=== PATIENT | male | born 1965 | race Caucasian/White ===

== ENCOUNTER → 2022-04-09 10:38 | Outpatient (CLI) | payer MEDICAID, SELFPAY ==
[2022-04-09 12:33] LABS: Alanine Aminotransferase 48 U/L (12-78); Albumin Level 4.2 g/dl (3.5-5.0); Alkaline Phosphatase 71 U/L (38-126); Anion Gap 11.8 mEq/L (5-15); Aspartate Amino Transferase 36 U/L (17-59); Bilirubin,Direct 0.2 mg/dl (0.0-0.4); Bilirubin,Indirect 0.6 mg/dL (0.0-0.9); Bilirubin,Total 0.8 mg/dl (0.2-1.3); Bilirubin,Unconjugated 0.7 mg/dL (0.0-1.1); Blood Urea Nitrogen 13 mg/dl (9-20); Carbon Dioxide 30 mmol/L (22.0-30.0); Chloride 104 mmol/L (98-107); Chol/HDL Ratio 3.4 (1-3.5); Cholesterol 158 mg/dl (140-200); Estimated Glomerular Filt Rate 69 ml/min (>60); GFR (African American) 83 ML/MIN (>60); Glucose 111 mg/dl (74-100); HDL Cholesterol 46 mg/dl (40-60); Potassium 4.8 mmoL/L (3.5-5.1); Sodium 141 mmol/L (136-145); Triglycerides 91 mg/dl (30-150); VLDL Cholesterol 18 mg/dL (0-40)
[2022-04-09 12:42] LABS: NT Pro Brain Natriuretic Pep. 132 pg/mL (0-125)
[2022-04-09 12:44] LABS: Direct LDL Cholesterol 88.94 mg/dL (100-129)
[2022-04-09 12:47] LABS: 25-OH Vitamin D, Total 43.8 ng/mL (30-100)
[2022-04-09 12:51] LABS: Basophils # 0.1 K/mm3 (0-0.2); Basophils % 1.6 % (0.1-2.0); Eosinophils # 0.2 K/mm3 (0.0-0.4); Eosinophils % 2.2 % (0.1-12.0); Hematocrit 52.8 % (42.0-52.0); Hemoglobin 16.5 g/dL (14.1-18.0); Lymphocytes # 1.5 K/mm3 (0.7-4.5); Lymphocytes % 18.4 % (10-50); Mean Corpuscular HGB Conc 31.2 g/dL (31.8-35.4); Mean Corpuscular Hemoglobin 29.3 pg (27.0-31.2); Mean Corpuscular Volume 94.1 fl (80-94); Mean Platelet Volume 9.9 fl (7.4-10.4); Monocytes # 0.4 K/mm3 (0.1-1.0); Neutrophils # 6.1 K/mm3 (1.8-7.8); Neutrophils % 72.7 % (37.0-80.0); Platelet Count 203 K/mm3 (142-424); Red Blood Count 5.61 M/mm3 (4.60-6.20); Red Cell Distribution Width 13.5 % (11.5-17.5); White Blood Count 8.4 K/mm3 (4.8-10.8)
[2022-04-09 13:04] LABS: Thyroid Stimulating Hormone 0.49 uIU/mL (0.465-4.68)
[2022-04-09 15:06] LABS: Free T4 (Free Thyroxine) 0.71 ng/dl (0.78-2.19)
== END ==
PROVIDERS: PCP Nurse Practitioner Family; Visit Provider Internal Medicine Cardiovascular Disease
DX: R06.00 Dyspnea, unspecified (principal); R00.0 Tachycardia, unspecified; R42 Dizziness and giddiness; R25.1 Tremor, unspecified; I11.0 Hypertensive heart disease with heart failure; I50.9 Heart failure, unspecified; E11.9 Type 2 diabetes mellitus without complications; E55.9 Vitamin D deficiency, unspecified; I63.9 Cerebral infarction, unspecified; R06.83 Snoring
CPT/HCPCS: 36415; 80048; 80061; 80076; 82306; 83880; 84439; 84443; 85025; 93270

== ENCOUNTER 2022-04-22 21:24 | Emergency (ER) | payer MEDICAID, SELFPAY ==
--- NOTE | 2022-04-22 21:22 | ECG_ITS ---
APPROVED REPORT Exam: Resting ECG HR:91 bpm ECG Measurements Heart Rate 91 AXES DE 159 P 54 QRSd 105 QRS 50 QT 362 T 41 QTc 410 Conclusion SINUS RHYTHM NORMAL ECG UNCONFIRMED REPORT Electronically signed by : Gwyn Gruber MD 04/23/2022 08:20:16
[2022-04-22 21:24] VITALS: BP 144/94; PULSE 89; RESP 18; TEMP 37.2; O2SAT 96; BMI 27.8
[2022-04-22 21:31] VITALS: BMI 27.8
--- NOTE | 2022-04-22 21:31 | CT_ITS ---
PROCEDURE INFORMATION: Exam: CT Head Without Contrast Exam date and time: 04/22/2022 9:47 PM Age: 57 years old Clinical indication: Other: Hallucinations; Additional info: [place] halluciations TECHNIQUE: Imaging protocol: Computed tomography of the head without contrast. Radiation optimization: All CT scans at this facility use at least one of these dose optimization techniques: automated exposure control; mA and/or kV adjustment per patient size (includes targeted exams where dose is matched to clinical indication); or iterative reconstruction. Other protocol: This patient has received 0 known CTs and 0 known cardiac nuclear medicine studies in the 12 months prior to the current study. COMPARISON: No relevant prior studies available. FINDINGS: Brain: Mild brain volume loss. No mass, hemorrhage or acute infarct. Cerebral ventricles: No ventriculomegaly. Paranasal sinuses: There is a small cyst in the left maxillary sinus. Mastoid air cells: Visualized mastoid air cells are well aerated. Bones/joints: Unremarkable. No acute fracture. Soft tissues: Unremarkable. IMPRESSION: No acute intracranial findings.
[2022-04-22 21:40] LABS: Basophils # 0.1 K/mm3 (0-0.2); Basophils % 1.4 % (0.1-2.0); Eosinophils # 0.3 K/mm3 (0.0-0.4); Eosinophils % 3.3 % (0.1-12.0); Hematocrit 48.3 % (42.0-52.0); Hemoglobin 16.2 g/dL (14.1-18.0); Lymphocytes # 1.9 K/mm3 (0.7-4.5); Lymphocytes % 19.7 % (10-50); Mean Corpuscular HGB Conc 33.5 g/dL (31.8-35.4); Mean Corpuscular Hemoglobin 30.8 pg (27.0-31.2); Mean Corpuscular Volume 91.8 fl (80-94); Mean Platelet Volume 9.1 fl (7.4-10.4); Monocytes # 0.4 K/mm3 (0.1-1.0); Monocytes % 4.1 % (1.7-9.3); Neutrophils # 6.7 K/mm3 (1.8-7.8); Neutrophils % 71.5 % (37.0-80.0); Platelet Count 198 K/mm3 (142-424); Red Blood Count 5.26 M/mm3 (4.60-6.20); Red Cell Distribution Width 13.8 % (11.5-17.5); White Blood Count 9.4 K/mm3 (4.8-10.8)
[2022-04-22 21:44] LABS: Microscopic, Urine URINE MICROSCOPIC (MICROSCOPIC)
[2022-04-22 21:46] LABS: Alanine Aminotransferase 75 U/L (12-78); Albumin Level 4.4 g/dl (3.5-5.0); Albumin/Globulin Ratio 1.5 (1.1-1.8); Alkaline Phosphatase 67 U/L (38-126); Anion Gap 9.9 mEq/L (5-15); Aspartate Amino Transferase 52 U/L (17-59); Bilirubin,Total 0.6 mg/dl (0.2-1.3); Blood Urea Nitrogen 12 mg/dl (9-20); Calcium 8.9 mg/dl (8.4-10.2); Carbon Dioxide 29 mmol/L (22.0-30.0); Chloride 105 mmol/L (98-107); Creatinine Clearance Estimated 134 mL/min (50-200); Estimated Glomerular Filt Rate 100 ml/min (>60); GFR (African American) 121 ML/MIN (>60); Glucose 125 mg/dl (74-100); Potassium 3.9 mmoL/L (3.5-5.1); Sodium 140 mmol/L (136-145); Total Protein,Serum 7.4 g/dl (6.3-8.2)
[2022-04-22 21:50] LABS: Appearance,Urine CLEAR (Clear); Bilirubin,Urine Negative (Negative); Blood, Urine Negative (Negative); Color,Urine YELLOW (Yellow); Glucose,Urine (UA) Negative (Negative); Ketones,Urine Negative (Negative); Leukocyte Esterase,Urine Negative (Negative); Nitrate,Urine Negative (Negative); PH,Urine 5.5 (5.0-8.5); Protein,Urine Negative (Negative); Specific Gravity, Urine 1.025 (1.005-1.030); Urobilinogen,Urine 0.2 EU/dl (0.2)
[2022-04-22 21:53] LABS: C-Reactive Protein 0.6 mg/L (0-4)
[2022-04-22 21:58] LABS: Squamous Epithelial Cell,Urine Occasional #/hpf (0-5)
[2022-04-22 22:00] LABS: Barbiturates Screen,Urine Negative ng/ml (<200); Benzodiazepines Screen,Urine Negative ng/ml (<200)
[2022-04-22 22:01] LABS: Amphetamine/Metha Screen,Urine Negative ng/ml (<1000)
[2022-04-22 22:02] LABS: Cannabinoid Screen,Urine Negative ng/ml (<50); Cocaine Screen,Urine Negative ng/ml (<300)
[2022-04-22 22:03] LABS: Methadone Screen,Urine Negative ng/ml (<300)
[2022-04-22 22:04] LABS: Opiate Screen,Urine Negative ng/ml (<300); Phencyclidine Screen,Urine Negative ng/ml (<25)
[2022-04-22 22:05] LABS: Procalcitonin 0.088 ng/mL (0.0-2.0)
[2022-04-22 22:06] LABS: Free T4 (Free Thyroxine) 0.81 ng/dl (0.78-2.19)
--- NOTE | 2022-04-22 22:14 | HMH.EDGENADL ---
Discharge Plan Disposition Patient Disposition: Home, Self-Care Prescriptions Prescriptions: No Action allopurinol 100 mg tablet 100 mg PO DAILY cyclobenzaprine 10 mg tablet 10 mg PO BID dicyclomine 20 mg tablet 20 mg PO QID pantoprazole [address] for susp in packet 40 mg PO DAILY atorvastatin 20 mg tablet 20 mg PO DAILY colestipol 1 gram tablet 1 g PO BID PRN (Reason: Diarrhea) Referrals Follow up/Referrals: Provider,Referral, MD [Referring] - See instructions Clinical Impressions Clinical Impression: Nausea, Headache Instructions Patient Instructions: DI for Headache Discharge ED Provider: Sam Romero General Adult HPI General Chief complaint: PAIN Stated complaint: chest pain Time Seen by Provider: 04/22/22 22:14 Mode of Arrival: Ambulatory Source of Information: Patient, Relative and Medical Record Limitations: No Limitations Description of Symptoms (Recalled from ER Triage Doc. by RN): pt reports a severe pressure headache 10/04. problems voiding and auditory and visual hallucinations. frequent weakness. pt reports this has been going on a few days. pt daughter reports some recent medicine changes as well History of Present Illness HPI narrative: pt with not feeling well with nausea - pt with reported sx as above with triage but not to me - no chest pain or focal neuro sx Onset (ago): hour(s) Severity: moderate Associated symptoms: denies other symptoms Related Data Home Medications Medication Instructions Recorded Confirmed allopurinol 100 mg tablet 100 mg PO DAILY Kidney stones 04/09/22 04/22/22 atorvastatin 20 mg tablet 20 mg PO DAILY Cholesterol 04/09/22 04/22/22 colestipol 1 gram tablet 1 g PO BID PRN Diarrhea 04/09/22 04/22/22 cyclobenzaprine 10 mg tablet 10 mg PO BID Tremors 04/09/22 04/22/22 dicyclomine 20 mg tablet 20 mg PO QID . 04/09/22 04/22/22 pantoprazole 40 mg granules 40 mg PO DAILY GERD 04/09/22 04/22/22 delayed-release for susp in packet Allergies Allergy/AdvReac Type Severity Reaction Status Date / Time Penicillins Allergy Mild Verified 04/20/22 15:23 propranolol AdvReac Intermediate visual Uncoded 04/20/22 15:23 hallucinations PFSH [facility] Disclaimer: The information contained in this section may have been updated after the patient was seen, as this information can be updated by other users. Medical History (Updated 04/23/22 @ 01:02 by Sam Romero MD) Visual hallucinations Surgical History (Updated 04/09/22 @ 09:56 by Spring Encarnacion) History of appendectomy Social History (Updated 04/09/22 @ 09:57 by Spring Encarnacion) Smoking Status: Never smoker alcohol intake: never substance use type: denies use current occupational status: employed Travel in the last 8 weeks: Inside the [place] ROS Obtained: Yes All systems reviewed & no additional complaints except as documented Physical Exam General General appearance: alert Head Head exam: normocephalic Eye Eye exam: Present PERRL and EOMI; Absent nystagmus ENT ENT exam: Present mucous membranes moist Neck Neck exam: Present trachea midline Respiratory Respiratory exam: Absent respiratory distress Cardiovascular Cardiovascular exam: Present regular rate Abdominal Exam Abdominal exam: Present soft Extremities Exam Extremities exam: Present full ROM Neurological Exam Neurological exam: Present alert, oriented X3, CN II-XII intact and normal gait Psychiatric Psychiatric exam: Present normal affect Skin Skin exam: Absent rash Medical Decision Making Medical Records Medical records reviewed: Yes I reviewed the patient's medical records. Antonino Inquiry Pt receiving controlled substance: No Vital Signs: 04/22/22 21:24 04/22/22 22:25 04/23/22 00:37 Temperature 98.9 F Temperature Source Oral Pulse Rate [Left] 89 Pulse Rate [Orthostatic Lying Left Radial] 94 H Pulse Rate [Orthostatic Sitting Left
[2022-04-22 22:19] LABS: Thyroid Stimulating Hormone 0.23 uIU/mL (0.465-4.68)
[2022-04-22 22:25] VITALS: BP 121/87; BP 123/84; BP 125/84; PULSE 85; PULSE 87; PULSE 94
[2022-04-22 22:29] LABS: Erythrocyte Sedimentation Rate 2 mm/hr (0-20)
--- NOTE | 2022-04-22 22:31 | PC.NURSE ---
Dr Yu wants us to talk with neurology
[2022-04-22 22:42] LABS: Acetaminophen < 10 ug/ml (10-30); Ethyl Alcohol < 10 mg/dl (0-10); Salicylate < 1.0 mg/dL (2.0-20.0)
[2022-04-23 00:40] VITALS: BP 126/92; PULSE 76; RESP 18; TEMP 37.1; O2SAT 98
[2022-04-23 03:49] LABS: Troponin I < 0.01 ng/ml (0.00-0.034)
== END 2022-04-23 00:56 | disposition home or self-care (01) ==
PROVIDERS: Emergency Provider Emergency Medicine; PCP Nurse Practitioner Family
DX: R51.9 Headache, unspecified (principal); R11.0 Nausea; R53.1 Weakness; R44.0 Auditory hallucinations; R44.1 Visual hallucinations; Z90.49 Acquired absence of other specified parts of digestive tract
CPT/HCPCS: 70450; 80053; 80305; 80329; 81001; 83735; 84145; 84439; 84443; 84484; 85025; 85651; 86140; 93005; 96360; 99285

== ENCOUNTER → 2022-05-05 07:13 | Outpatient (CLI) | payer SELFPAY ==
--- NOTE | 2022-05-05 07:13 | CT_ITS ---
FINAL REPORT TECHNIQUE: Thin section axial images were obtained through the heart and coronary arteries per CT coronary calcium score protocol. This study was performed with techniques to keep radiation doses as low as reasonably achievable (ALARA). Individualized dose reduction techniques using automated exposure control or adjustment of mA and/or kV according to the patient's size were employed. CLINICAL HISTORY: screening for heart disease. Hypertension FINDINGS: On the axial images, there is calcification within the predominantly LAD. This gives a coronary artery calcium score of 14.5 based on the Agatston scale. This coronary calcium score places the patient within the 34 percentile based on age and gender. The heart is normal in size. There is no pleural or pericardial effusion. Limited evaluation of the lungs reveal no suspicious nodule. There is scarring at the bases. IMPRESSION: Coronary artery calcium score of 14.5 places patient in the 34 percentile based on age and gender. Reviewed, Interpreted and Dictated by Veto Hood MD Transcribed by Sola Otero Authenticated and [facility]
== END ==
PROVIDERS: PCP Nurse Practitioner Family; Visit Provider Internal Medicine Cardiovascular Disease
DX: R06.00 Dyspnea, unspecified (principal); Z13.6 Encounter for screening for cardiovascular disorders; R42 Dizziness and giddiness; R00.0 Tachycardia, unspecified; R25.1 Tremor, unspecified; E11.9 Type 2 diabetes mellitus without complications; I10 Essential (primary) hypertension; R06.83 Snoring
CPT/HCPCS: 75571

== ENCOUNTER → 2022-05-17 10:48 | Outpatient (CLI) | payer MEDICAID, SELFPAY ==
[2022-05-17 12:22] LABS: Ferritin 161 ng/ml (17.9-464)
[2022-05-17 12:53] LABS: Vitamin B12 557 pg/mL (239-931)
[2022-05-17 12:56] LABS: Folate 8.78 ng/mL
== END ==
PROVIDERS: PCP Nurse Practitioner Family; Visit Provider Nurse Practitioner Family
DX: R00.0 Tachycardia, unspecified (principal); F43.9 Reaction to severe stress, unspecified; I10 Essential (primary) hypertension; G47.33 Obstructive sleep apnea (adult) (pediatric); G25.81 Restless legs syndrome; G47.00 Insomnia, unspecified; R06.83 Snoring; R51.9 Headache, unspecified; R68.89 Other general symptoms and signs
CPT/HCPCS: 36415; 82607; 82728; 82746; 95806

== ENCOUNTER → 2022-05-26 07:05 | Outpatient (CLI) | payer MEDICAID, SELFPAY ==
--- NOTE | 2022-05-26 07:05 | CA_ITS ---
FINAL REPORT TECHNIQUE: Grayscale, color Doppler and duplex Doppler ultrasound of the kidneys, aorta and renal arteries was performed. Multiple velocities were measured. CLINICAL HISTORY: HTN,HLD,HX KIDNEY STONES FINDINGS: Aorta velocity: 92.5 cm/sec Right kidney: 11.0 cm. No evidence of hydronephrosis or mass. Right intrarenal RI: 0.52 Right renal artery velocity: 184 cm/sec. Right RAR (Renal artery-Aortic Ratio): 1.99 Left Kidney: 10.7 cm. No evidence of hydronephrosis or mass. Left intrarenal RI: 0.49 Left renal artery velocity: 126 cm/sec. Left RAR (Renal Artery-Aortic Ratio): 1.36 IMPRESSION: No evidence of significant renal artery stenosis. CT angiogram or postcontrast MR angiogram would be more sensitive for evaluation of possible renal artery stenosis. Reviewed, Interpreted and Dictated by Princess Rivers MD Transcribed by Priscilla Emmanuel Authenticated and [facility]
--- NOTE | 2022-05-26 08:12 | US_ITS ---
FINAL REPORT CLINICAL HISTORY: hypertension COMPARISON: none FINDINGS: RENAL ULTRASOUND Ultrasound images of the kidneys were obtained. Limited images of the liver parenchyma demonstrates normal echogenicity. The right kidney measures 10.1 cm in length. It is normal echogenicity. There is no hydronephrosis. The left kidney measures 11.1 cm in length. It is normal echogenicity. There is no hydronephrosis. IMPRESSION: Unremarkable renal ultrasound. Reviewed, Interpreted and Dictated by Princess Rivers MD Transcribed by Clotilde Veloz Authenticated and [facility]
[2022-05-26 08:31] VITALS: BMI 28.3
[2022-05-26 08:31] LABS: Blood Urea Nitrogen 18 mg/dl (9-20); Estimated Glomerular Filt Rate 87 ml/min (>60); GFR (African American) 105 ML/MIN (>60)
[2022-05-26 08:50] LABS: Free T4 (Free Thyroxine) 0.63 ng/dl (0.78-2.19)
[2022-05-26 09:03] LABS: Thyroid Stimulating Hormone 0.46 uIU/mL (0.465-4.68)
[2022-05-27 12:12] LABS: Adrenocorticotropic Hormone 26.7 pg/mL (7.2-63.3); FSH 4.9 mIU/mL (1.5-12.4); LH 7.1 mIU/mL (1.7-8.6); Prolactin 8.8 ng/mL (4.0-15.2); Testosterone,Total 413 ng/dL (264-916); Triiodothyronine (T3) Free 3.4 pg/mL (2.0-4.4)
[2022-06-01 15:29] LABS: Testosterone,Free 10.5 pg/mL (7.2-24.0)
== END ==
PROVIDERS: Internal Medicine; Internal Medicine Endocrinology, Diabetes & Metabolism; PCP Nurse Practitioner Family; Visit Provider Nurse Practitioner Family
DX: R07.89 Other chest pain (principal); R42 Dizziness and giddiness; I10 Essential (primary) hypertension
CPT/HCPCS: 36415; 75574; 76770; 82024; 82533; 82565; 82626; 83001; 83002; 84146; 84402; 84403; 84439; 84443; 84481; 84520; 93976; Q9967

== ENCOUNTER → 2022-05-31 07:37 | Outpatient (CLI) | payer MEDICAID, SELFPAY ==
--- NOTE | 2022-05-31 07:37 | MR_ITS ---
FINAL REPORT CLINICAL HISTORY: Head pressure, forgetfulness, history of hallucinations. COMPARISON: CT dated April 22, 2022 FINDINGS: Multiplanar MR imaging of the brain was performed without and with contrast. Several small foci of increased T2 signal are seen in the cerebral white matter, consistent with mild chronic ischemic/gliotic changes. There is no evidence of intracranial hemorrhage or mass. No abnormal ventricular dilatation is identified. There is no evidence of shift of the midline structures. No abnormal extra-axial fluid collection is seen. No area of abnormal restricted diffusion is identified. The posterior fossa and brainstem have an unremarkable appearance. Note is made of a retention cyst or polyp in the left maxillary sinus which is stable. Mild mucosal thickening other sinuses. No abnormal contrast enhancement is seen. Normal major vessel vascular flow voids are seen. IMPRESSION: Chronic ischemic/gliotic changes. No acute intracranial abnormality. Reviewed, Interpreted and Dictated by Cuba Teague III, MD Transcribed by Priscilla Emmanuel Authenticated and [facility]
== END ==
PROVIDERS: PCP Nurse Practitioner Family; Visit Provider Nurse Practitioner Family
DX: R51.9 Headache, unspecified (principal); R44.0 Auditory hallucinations; R44.1 Visual hallucinations; F43.9 Reaction to severe stress, unspecified; R00.0 Tachycardia, unspecified; I10 Essential (primary) hypertension; G25.81 Restless legs syndrome; G47.00 Insomnia, unspecified; R06.81 Apnea, not elsewhere classified; R06.83 Snoring; R68.89 Other general symptoms and signs
CPT/HCPCS: 70553; A9576